=== PATIENT | female | born 1950 | race Caucasian/White ===

== ENCOUNTER 2024-08-26 18:07 | Emergency (ER) | payer MEDICARE, SELFPAY ==
[2024-08-26 18:08] VITALS: BP 145/79; PULSE 88; RESP 20; TEMP 37.1; O2SAT 98
[2024-08-26] MEDS: LACTATED RINGERS 1,000 ML 999 ML IV CONT ×2 (18:28→20:11)
[2024-08-26 18:34] LABS: Basophils Absolute Auto 0.1 K/mm3 (0.0-0.1); Basophils Percent Auto 0.7 % (0.2-1.2); Eosinophils Absolute Auto 0.2 K/mm3 (0-0.3); Eosinophils Percent Auto 3.2 % (0-4.4); Hematocrit 37.7 % (37.0-47.0); Hemoglobin 12.5 g/dL (12.0-15.0); Immature Granulocyte Absolute 0.03 K/mm3 (0.00-0.031); Immature Granulocyte Percent A 0.4 % (0-0.5); Lymphocytes Percent Auto 27.6 % (18.3-44.2); Mean Corpuscular HGB Conc 33.2 g/dl (32-36); Mean Corpuscular Hemoglobin 30.1 pg (26-34); Mean Corpuscular Volume 90.8 fl (80-100); Mean Platelet Volume 10.9 fl (7.4-10.4); Monocytes Absolute Auto 0.5 K/mm3 (0.1-0.6); Monocytes Percent Auto 7.6 % (2.6-8.5); Neutrophils Absolute Auto 4.2 K/mm3 (1.3-6.7); Neutrophils Percent Auto 60.5 % (45.5-73.1); Platelet Count Result 191 k/mm3 (150-375); Red Blood Count 4.15 M/mm3 (4.2-5.4); Red Cell Distribution Width 12.6 % (11.5-14.5); White Blood Count 6.9 K/mm3 (4.5-10.0)
[2024-08-26 18:44] LABS: Alanine Aminotransferase 19 U/L (6-35); Albumin Level 4.5 g/dL (3.5-5.1); Alkaline Phosphatase 72 U/L (38-126); Anion Gap 17 mmol/L (4-12); Aspartate Amino Transferase 26 U/L (14-36); Bilirubin,Total 0.5 mg/dL (0.2-1.3); Blood Urea Nitrogen 14 mg/dL (7-17); Calcium 9.3 mg/dL (8.4-10.2); Carbon Dioxide 17 mmol/L (22-30); Chloride 102 mmol/L (98-107); Estimated CRCL calculation 48 ml/min; Estimated Glomerular Filt Rate > 60; Glucose 95 mg/dL (65-110); Potassium 3.8 mmol/L (3.4-5.0); Sodium 136 mmol/L (137-145)
[2024-08-26] MEDS: HALOPERIDOL LACTATE 5 MG/ML VIAL IV PUSH (18:49)
[2024-08-26 18:50] LABS: Ethanol 259 mg/dL (<10)
--- NOTE | 2024-08-26 18:57 | ED_ITS ---
HPI - Alcohol General Chief Complaint: Alcohol <Teresa Rosales MD - Last Filed: 08/26/24 19:24> Stated Complaint: AMS, ETOH <Teresa Rosales MD - Last Filed: 08/26/24 19:24> Time Seen by Provider: 08/26/24 18:13 <Teresa Rosales MD - Last Filed: 08/26/24 19:24> History of Present Illness HPI narrative: Patient [place] here from the nail [place] after she admits that she snuck 2 bottles of white wine and drank it. She is denying any somatic complaints other than she wants us to leave her alone <Teresa Rosales MD - Last Filed: 08/26/24 19:24> Related Data Allergies/Adverse Reactions: Allergies Allergy/AdvReac Type Severity Reaction Status Date / Time No Known Allergies Allergy Verified 08/26/24 18:47 <Teresa Rosales MD - Last Filed: 08/26/24 19:24> Review of Systems 2 Review of Systems: ROS unobtainable: Yes unobtainable due to mental status <Teresa Rosales MD - Last Filed: 08/26/24 19:24> Exam 2 Narrative: EXAMINATION OF ORGAN SYSTEMS/BODY AREAS: Constitutional: Vital signs per nursing GENERAL: Obviously intoxicated HEAD: Normal with no signs of head trauma. EYES: EOMI, conjunctiva normal ENT: Hearing grossly intact LUNGS: Nonlabored breathing. HEART: [Regular rate and rhythm] ABD: [Soft], [nontender to palpation] EXT: Moving all extremities SKIN: [No rashes or lesions.] NEURO: [Alert with slurred speech. 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 Patient is alcohol intoxicated with a blood alcohol of 259. Patient was given hydration turn IV and her other laboratory studies are unremarkable. Patient is awake and alert. Attempting to arrange a sober ride for her to get home otherwise she will be in the ER until clinical sobriety and discharge. Patient is up and ambulating here in the emergency department and calm and cooperative. Normal vital signs. She was hydrated here and her family members are ready to take her home and felt comfortable with her discharge. Patient was discharged home at this time. <Karel Ragland MD - Last Filed: 08/27/24 06:33> Vital Signs Vital signs: Vital Signs Temperature 37.1 C 08/26/24 18:08 Pulse Rate 88 08/26/24 18:08 Respiratory Rate 20 08/26/24 18:08 Blood Pressure 145/79 H 08/26/24 18:08 Pulse Oximetry 98 08/26/24 18:08 Oxygen Delivery Room Air 08/26/24 18:08 Temperature 37.1 C 08/26/24 18:08 Pulse Rate 72 08/26/24 22:15 Respiratory Rate 19 08/26/24 22:15 Blood Pressure 118/74 08/26/24 22:15 Pulse Oximetry 96 08/26/24 22:15 Oxygen Delivery Room Air 08/26/24 18:08 <Teresa Rosales MD - Last Filed: 08/26/24 19:24> Vital Signs Temperature 37.1 C 08/26/24 18:08 Pulse Rate 88 08/26/24 18:08 Respiratory Rate 20 08/26/24 18:08 Blood Pressure 145/79 H 08/26/24 18:08 Pulse Oximetry 98 08/26/24 18:08 Oxygen Delivery Room Air 08/26/24 18:08 Temperature 37.1 C 08/26/24 18:08 Pulse Rate 72 08/26/24 22:15 Respiratory Rate 19 08/26/24 22:15 Blood Pressure 118/74 08/26/24 22:15 Pulse Oximetry 96 08/26/24 22:15 Oxygen Delivery Room Air 08/26/24 18:08 <Karel Ragland MD - Last Filed: 08/27/24 06:33> MDM - Alcohol MDM Narrative Medical decision making narrative: [facility] drinking 2 bottles of white wine disguised as water. No focal lateralizing neurological deficits although limited exam due to intoxication, will re-evaluate after sobriety. No complaints at this time, admits to alcohol use, and has a physical exam consistent with alcohol intoxication. CBG acceptable range. Given fluids and Haldol since she started screaming at staff, climbing out of bed, masturbating. Signed out to oncoming physician pending sobriety. <Teresa Rosales MD - Last Filed: 08/26/24 19:24> Lab Data Result diagrams: 08/26/24 18:24 08/26/24 18:24 <Teresa Rosales MD - Last Filed: 08/26/24 19:24> Labs: Lab Results 08/26/24 Range/Units 18:24 WBC 6.9 (4.5-10.0) K/mm3 RBC 4.15 L (4.2-5.4) M/mm3 Hgb 12.5 (12.0-15.0) g/dL Hct 37.7 (37.0-47.0) % MCV 90.8 (80-100) fl MCH 30.1 (26-34) pg MCHC 33.2 (32-36) g/dl RDW 12.6 (11.5-14.5) % Plt Count 191 (150-375) k/mm3 MPV 10.9 H (7.4-10.4) fl Immature Gran % (Auto) 0.4 (0-0.5) % Neut % (Auto) 60.5 (45.5-73.1) % Lymph % (Auto) 27.6 (18.3-44.2) % Cotton % (Auto) 7.6 (2.6-8.5) % Eos % (Auto) 3.2 (0-4.4) % Baso % (Auto) 0.7 (0.2-1.2) % Lymph # (Auto) 1.90 (0.9-3.2) K/mm3 Cotton # (Auto) 0.5 (0.1-0.6) K/mm3 Eos # (Auto) 0.2 (0-0.3) K/mm3 Baso # (Auto) 0.1 (0.0-0.1) K/mm3 Abs Immat Gran (auto) 0.03 (0.00-0.031) K/mm3 Absolute Neuts (auto) 4.2 (1.3-6.7) K/mm3 Absolute Nucleated RBC 0.000 (0.0-0.012) K/mm3 Nucleated RBC % 0.0 (0.0-0.2) % Sodium 136 L (137-145) mmol/L Potassium 3.8 (3.4-5.0) mmol/L Chloride 102 (98-107) mmol/L Carbon Dioxide 17 L (22-30) mmol/L Anion Gap 17 H (4-12) mmol/L BUN 14 (7-17) mg/dL Creatinine 0.83 (0.7-1.0) mg/dL Estim Creat Clear Calc 48 ml/min Estimated GFR > 60 (59 - ) Glucose 95 (65-110) mg/dL Calcium 9.3 (8.4-10.2) mg/dL Total Bilirubin 0.5 (0.2-1.3) mg/dL AST 26 (14-36) U/L ALT 19 (6-35) U/L Alkaline Phosphatase 72 (38-126) U/L Total Protein 7.0 (6.3-8.2) g/dL Albumin 4.5 (3.5-5.1) g/dL Ethyl Alcohol 259 (<10) mg/dL <Teresa Rosales MD - Last Filed: 08/26/24 19:24> Lab Results 08/26/24 Range/Units 18:24 WBC 6.9 (4.5-10.0) K/mm3 RBC 4.15 L (4.2-5.4) M/mm3 Hgb 12.5 (12.0-15.0) g/dL Hct 37.7 (37.0-47.0) % MCV 90.8 (80-100) fl MCH 30.1 (26-34) pg MCHC 33.2 (32-36) g/dl RDW 12.6 (11.5-14.5) % Plt Count 191 (150-375) k/mm3 MPV 10.9 H (7.4-10.4) fl Immature Gran % (Auto) 0.4 (0-0.5) % Neut % (Auto) 60.5 (45.5-73.1) % Lymph % (Auto) 27.6 (18.3-44.2) % Cotton % (Auto) 7.6 (2.6-8.5) % Eos % (Auto) 3.2 (0-4.4) % Baso % (Auto) 0.7 (0.2-1.2) % Lymph # (Auto) 1.90 (0.9-3.2) K/mm3 Cotton # (Auto) 0.5 (0.1-0.6) K/mm3 Eos # (Auto) 0.2 (0-0.3) K/mm3 Baso # (Auto) 0.1 (0.0-0.1) K/mm3 Abs Immat Gran (auto) 0.03 (0.00-0.031) K/mm3 Absolute Neuts (auto) 4.2 (1.3-6.7) K/mm3 Absolute Nucleated RBC 0.000 (0.0-0.012) K/mm3 Nucleated RBC % 0.0 (0.0-0.2) % Sodium 136 L (137-145) mmol/L Potassium 3.8 (3.4-5.0) mmol/L Chloride 102 (98-107) mmol/L Carbon Dioxide 17 L (22-30) mmol/L Anion Gap 17 H (4-12) mmol/L BUN 14 (7-17) mg/dL Creatinine 0.83 (0.7-1.0) mg/dL Estim Creat Clear Calc 48 ml/min Estimated GFR > 60 (59 - ) Glucose 95 (65-110) mg/dL Calcium 9.3 (8.4-10.2) mg/dL Total Bilirubin 0.5 (0.2-1.3) mg/dL AST 26 (14-36) U/L ALT 19 (6-35) U/L Alkaline Phosphatase 72 (38-126) U/L Total Protein 7.0 (6.3-8.2) g/dL Albumin 4.5 (3.5-5.1) g/dL Ethyl Alcohol 259 (<10) mg/dL <Karel Ragland MD - Last Filed: 08/27/24 06:33> Discharge Plan Discharge Clinical Impression: Alcoholic intoxication <Teresa Rosales MD - Last Filed: 08/26/24 19:24> Patient Disposition: Home <Teresa Rosales MD - Last Filed: 08/26/24 19:24> Condition: Stable <Teresa Rosales MD - Last Filed: 08/26/24 19:24> Instructions: Antibiotic Form, Abuse of Alcohol (ED) <Teresa Rosales MD - Last Filed: 05/15/25 19:24> Additional Instructions: Refrain from using significant amounts of alcohol. Return with any emergent concerns otherwise follow-up with your regular doctors. <Teresa Rosales MD - Last Filed: 08/26/24 19:24> Patient Language: Mongolian <Teresa Rosales MD - Last Filed: 08/26/24 19:24> Time of Disposition: 22:11 <Teresa Rosales MD - Last Filed: 08/26/24 19:24> 22:11 <Karel Ragland MD - Last Filed: 08/27/24 06:33>
[2024-08-26 19:15] VITALS: BP 114/84; BP 99/48; PULSE 73; PULSE 79; RESP 19; RESP 20; O2SAT 96; O2SAT 97
--- NOTE | 2024-08-26 19:17 | PC.NURSE ---
Assumed care of patient after receiving report from DALE Sanders. Patient received haldol prior to this RN arrival but no chemical restraint documentation noted.
[2024-08-26 20:03] VITALS: BP 94/62; PULSE 72; RESP 16; O2SAT 97
[2024-08-26 20:18] VITALS: BP 102/73; PULSE 79; RESP 16; O2SAT 99
[2024-08-26 21:18] VITALS: BP 112/71; PULSE 69; RESP 17; O2SAT 96
--- OUTSIDE RECORDS SUMMARY | 2024-08-26 21:48 | XMS_ITS | Clinical Summary ---
Author Organization [facility] Address [address] [place] [address] Care Team Providers Care Er Registrar Name Role Phone Shola Alvarez MD Unavailable [phone] Camilo Crowley DO Unavailable [phone] Jonna Mathew DO Primary Care Provide r Allergies Active Allergy Reactions Criticality Noted Date Comments Bee Venom Itching 07/23/2021 Uses epipen when has bee sting Insect Stings Hives High 12/13/2020 Medications EPINEPHrine 0.3 MG/0.3ML injection Inject 0.3 mLs (0.3 mg total) into the muscle as needed for Anaphylaxis. 1 Active omeprazole 40 MG capsule Take 1 capsule (40 mg total) by mouth daily. 1 Active famotidine 40 MG tablet Take 1 tablet (40 mg total) by mouth daily with lunch. Active sertraline 100 MG tablet Take 2 tablets (200 mg total) by mouth daily. Active atorvastatin 40 MG tablet Take 1 tablet (40 mg total) by mouth daily. 2 Active SUMAtriptan 100 MG tablet Take 0.5 tablets (50 mg total) by mouth 2 (two) times daily as needed. 2 Active tiZANidine 4 MG tablet Take 1 tablet (4 mg total) by mouth every 6 (six) hours as needed. Takes it routinely 4 times every day 1 Active acetaminophen 325 MG tablet Take 2 tablets (650 mg total) by mouth every 6 (six) hours as needed. Prn pain in arm from fracture of left arm 2 Active vitamin C 500 MG tablet Take 1 tablet (500 mg total) by mouth daily. Active calcium-vitamin D 600-200 MG-UNIT tablet Take 1 tablet by mouth 2 (two) times daily. Active traZODone 50 MG tablet Take 2 tablets (100 mg total) by mouth nightly as needed. at bedtime. 2 Active alendronate (FOSAMAX) 70 MG tablet Take 1 tablet (70 mg total) by mouth once a week. Friday 2 Active methIMAzole (TAPAZOLE) 5 MG tablet Take 1 tablet (5 mg total) by mouth daily. 3 Active busPIRone (BUSPAR) 10 MG tablet Take 1 tablet (10 mg total) by mouth 2 (two) times daily. Active Melatonin 10 MG Cap Take 10 mg by mouth nightly. Active diphenhydrAMINE (BENADRYL) 25 MG capsule Take 1 capsule (25 mg total) by mouth nightly as needed for Sleep. Active traMADol (ULTRAM) 50 MG tabletIndicatio ns:Acute Pain < 3 Day Supply Take 1 tablet (50 mg total) by mouth every 6 (six) hours as needed for Pain. Indications: Acute Pain < 3 Day Supply 10 tablet 3 Active Additional Information Patient not taking.Reported on 01/21/2023 midodrine (PROAMATINE) 5 MG tablet Take 1 tablet (5 mg total) by mouth 3 (three) times daily for 30 days. 90 tablet 3 Active clonazePAM (KLONOPIN) 0.5 MG tablet 1 TABLET A DAY ONLY NEEDED FOR ANXIETY- DO NOT TAKE AT NIGHT OR EVERY DAY 3 Active mirtazapine (REMERON) 15 MG tablet Take 1 tablet (15 mg total) by mouth nightly at bedtime. Active Active Problems Problem Noted Date Diagnosed Date Multinodular goiter 10/23/2022 Essential (primary) hypertension 07/25/2021 Syncope, unspecified syncope type 07/25/2021 Chest pain in adult 03/21/2021 Chronic pain of right knee 03/30/2019 Lightheadedness Encounters Date Type Department Care Team Description 08/16/2024 3:45 PM CDT - 08/16/2024 11:59 PM CDT Hospital Encounter [facility] [place] [address] Jonna Mathew, DO Discharge Disposition: Home or Self Care (Routine Discharge) 08/16/2024 Travel from Last 3 Months Immunizations Immunization Administration Dates Next Due Fluad influenza vaccine, Sumeet drivalent (aIIV4), Inactivated, adjuvanted, preservative free, 0.5 mL,IM use 06/19/2017 Flucelvax 6 Months+ (Prefilled Syringe) 01/22/20 PFIZER COVID-19 (ORIGINAL FO RMULATION, PURPLE CAP) mRNA, LNP-S, PF, 30 MCG/0.3 ML DOSE 03/05/2021 Pneumococcal (Prevnar 13) 01/21/2019,06/19/2017 Shingrix 11/06/2020 Family History Medical History Relation Comments Hypertension Brother 1 Alcohol Abuse Father Hyperlipidemia Maternal Grandmother Breast Cancer Mother Cancer Mother breast cancer Hypertension Mother Breast Cancer Sister Cancer Sister Hypertension Sister Relation Status Comments Brother 1 Alive Brother 2 (Age 69) found , patient estranged Daughter Alive Father Other estranged from p atient Maternal Grandfather Maternal Grandmother Mother (Age 65) breast cancer Paternal Grandfather Paternal Grandmother Sister Alive Son (Age 17) in MVA Social History Tobacco Use Types Packs/Day Years Used Date Smoking Tobacco: Never Smokeless Tobacco: Never Alcohol Use Standard Drinks/Week Comments Not Currently 0 (1 standard drink = 0.6 oz pure alcohol) no alcohol within past few years AUDIT-C Answer Date Recorded Frequency of Alcohol Consumption Never 01/31/2019 Average Number of Drinks Not on file 019 Frequency of Binge Drinking Not on file 01/13 PHQ-2 Answer Date Recorded Patient Health Questionnaire-2 Score 0 10/23/2022 Comments No Sex and Gender Information Value Date Recorded Sex Assigned at Not on file Legal Sex Female 7:06 AM CDT Gender Identity Female 08/20/2021 6:47 AM CDT Sexual Orientation Straight 08/20/2021 6: 47 AM CDT Last Filed Vital Signs Vital Sign Reading Time Taken Comments Blood Pressure 100/56 01/21/2023 12:46 PM CDT Pulse 64 01/21/2023 12:46 PM CDT Temperature 36.6 C (97.9 F) 01/01/2023 10:58 AM CDT Respiratory Rate 16 01/01/2023 10:58 AM CDT Oxygen Saturation 100% 01/01/2023 10:58 AM CDT Inhaled Oxygen Concentration - - Weight 56.7 kg (125 lb) 01/21/2023 12:46 PM CDT Height 160 cm (5' 3 ) 01/21/2023 12:46 PM CDT Body Mass Index 22.14 01/21/2023 12:46 PM CDT Plan of Treatment Health Maintenance Due Date Last Done Comments Hepatitis C 12/28[birth year]1969 DTaP, Tdap and Td Vaccines ( 1 - Tdap) 12/28/1970 Annual Medicare Wellness Visit 12/28/2016 Pneumococcal Vaccine: 50+ Years (2 of 2 - PPSV23) 01/22/2020 01/21/2019, 06/19/2017 Zoster Vaccines (2 of 2) 01/01/2021 11/06/2020 COVID-19 Vaccine (4 - 2023-2 5 season) 2023 03/05/2021, 07/20/2020, 06/29/2020 PHQ-2 (Physician [place]) 04/14/2024 10/23/2022 Mammogram Screening 09/16/2024 09/16/2022 RSV Immunization or 60+ Years (1 - 1-dose 75+ series) 12/28/2026 Colorectal Cancer Screening Colonoscopy (10 Years) 12/13/2030 12/13/2020, 12/13/2020 Dexa Scan (General) Completed 11/05/2023, 11/02/2021 Meningococcal B Vaccine Aged Out No l onger eligible based on patient's age to complete this topic Meningococcal Vaccine Aged Out No [place] fco eligible based on patient's age to complete this topic RSV Immunizations Under 20 Months Aged Out No longer eligible b ased on patient's age to complete this topic Procedures Procedure Name Priority Date/Time Associated Diagnosis Comments XR KNEE RT 3V Routine 08/16/2024 4:21 PM CDT Pain in right knee XR KNEE LT 3V Routine 08/16/2024 4:21 PM CDT Pain in left knee BONE DENSITY/DEXA Routine 11/05/2023 2:3 1 PM CDT Asymptomatic menopausal state MG DIAG IMPLANT W MURPHY RT DIGI Routine 09/16/2022 4:23 PM CDT Personal history of malignant neoplasm of breast COLONOSCOPY Routine 12/13/2020 8:54 AM CDT from Last 3 Months or Most Recently Relevant to Health Maintenance Results * XR KNEE RT 3V (08/16/2024 4:21 PM CDT) Anatomical Region Laterality Modality Knee Radiographic [place] ging 08/17/2024 4:15 AM CDT Impressions 08/17/2024 4:16 AM CDT IMPRESSION: 1. Mild early osteoarthritic changes in both knees with no acute osseous abnormalities Referred By: Interpreted By: Dex Smith MD, 08/17/2024 4:15 AM Narrative 08/17/2024 4:16 AM CDT [address] [address] Examination: Right knee 3 views, left knee 3 views [id number] Exam Date/Time: 08/16/2024 4:06 PM Reason For Exam: knee pain Bilateral pain in the knees for multiple years recently worsening. No known injury. Comparison: 12/18/2018 right knee radiographs Technique: 3 views of the right knee were obtained. 3 views of the left knee were obtained. Findings: Minimal joint space narrowing in the medial compartments bilaterally. Tiny superior patellar spur bilaterally. No significant joint effusion on either side. No fracture or dislocation in either knee. No destructive osseous lesions. No radiopaque foreign bodies. Procedure Note Dex Smith MD - 08/17/2024 [facility] [address] [place], [place] [address] Examination: Right knee 3 views, left knee 3 views [id number] Exam Date/Time: 08/16/2024 4:06 PM Reason For Exam: knee pain Bilateral pain in the knees for multiple years recently worsening. [place] injury. Comparison: 12/18/2018 right knee radiographs Technique: 3 views of the right knee were obtained. 3 views of the leftknee were obtained. Findings: Minimal joint space narrowing in the medial compartmentsbilaterally. Tiny superior patellar spur bilaterally. No significantjoint effusion on either side. No fracture or dislocation in either knee.No destructive osseous lesions. No radiopaque foreign bodies. IMPRESSION: 1. Mild early osteoarthritic changes in both knees with no acute osseousabnormalities Referred By: Interpreted By: Dex Smith MD, 08/17/2024 4:15 AM Jonna Mathew DO GENERAL IMAGING Final Result * XR KNEE LT 3V (08/16/2024 4:21 PM CDT) Anatomical Region Laterality Modality Knee Radiographic [place] ging 08/17/2024 4:15 AM CDT Impressions 08/17/2024 4:16 AM CDT IMPRESSION: 1. Mild early osteoarthritic changes in both knees with no acute osseous abnormalities Referred By: Interpreted By: Dex Smith MD, 08/17/2024 4:15 AM Narrative 08/17/2024 4:16 AM CDT [address] [address] Examination: Right knee 3 views, left knee 3 views [id number] Exam Date/Time: 08/16/2024 4:06 PM Reason For Exam: knee pain Bilateral pain in the knees for multiple years recently worsening. No known injury. Comparison: 12/18/2018 right knee radiographs Technique: 3 views of the right knee were obtained. 3 views of the left knee were obtained. Findings: Minimal joint space narrowing in the medial compartments bilaterally. Tiny superior patellar spur bilaterally. No significant joint effusion on either side. No fracture or dislocation in either knee. No destructive osseous lesions. No radiopaque foreign bodies. Procedure Note Dex Smith MD - 08/17/[address] [address] Examination: Right knee 3 views, left knee 3 views [id number] Exam Date/Time: 08/16/2024 4:06 PM Reason For Exam: knee pain Bilateral pain in the knees for multiple years recently worsening. [place] injury. Comparison: 12/18/2018 right knee radiographs Technique: 3 views of the right knee were obtained. 3 views of the leftknee were obtained. Findings: Minimal joint space narrowing in the medial compartmentsbilaterally. Tiny superior patellar spur bilaterally. No significantjoint effusion on either side. No fracture or dislocation in either knee.No destructive osseous lesions. No radiopaque foreign bodies. IMPRESSION: 1. Mild early osteoarthritic changes in both knees with no acute osseousabnormalities Referred By: Interpreted By: Dex Smith MD, 08/17/2024 4:15 AM Jonna Mathew DO GENERAL IMAGING Final Result * BONE DENSITY/DEXA (11/05/2023 2:31 PM CDT) Anatomical Region Laterality Modality Bone Mammography 11/05/2023 2:35 PM CDT Impressions 11/05/2023 2:36 PM CDT IMPRESSION: WHO Classification: osteoporosis. 3.6% interval decrease in bone mineral density of the lumbar spine from 2021 comparison FRAX: 5.5% chance of hip fracture and 16% chance of major osteoporotic fracture over the next 10 years. Referred By: REGIS HITCHCOCK Interpreted By: Dex Smith MD, 11/05/2023 2:35 PM Narrative 11/05/2023 2:36 PM CDT Examination: Bone Density Axial Exam Date/Time: 11/05/2023 2:10 PM Reason For Exam: Asymptomatic menopausal state Comparison: 11/02/2021 DEXA scan Findings: DEXA bone densitometry The bone mineral density (BMD) was determined by dual-energy x-ray absorptiometry, the results are as follows: AP Lumbar Spine L1 through L4 BMD Patient (GM/SQCM): 0.846 T-Score (Standard deviations from young adult peak bone density): -1.8 Right femoral neck: BMD Patient (GM/SQCM): 0.526 T-Score (Standard deviations from young adult peak bone density): -2.9 Total Left femur: BMD Patient (GM/SQCM): 0.672 T-Score (Standard deviations from young adult peak bone density): -2.2 Recommendations: All patients should ensure an adequate intake of dietary calcium and vitamin D. The NOF recommend adults under the age of 50 need 1000 mg of calcium and 400-800 IU of vitamin D daily. Effective therapy for the prevention and treatment of osteoporosis include biphosphonates. Follow-up: People with diagnosed cases of osteoporosis or at high risk for fracture should have regular bone mineral density test. For patients eligible for Medicare, routine testing is allowed once every 2 years. Testing frequency can be increased to one year for patients who have rapidly progressing disease, those who are receiving or discontinuing medical therapy to restore bone mass, or have additional risk factors. Procedure Note Dex Smith MD - 11/05/2023 Examination: Bone Density Axial Exam Date/Time: 11/05/2023 2:10 PM Reason For Exam: Asymptomatic menopausal state Comparison: 11/02/2021 DEXA scan Findings: DEXA bone densitometry The bone mineral density (BMD) was determined bydual-energy x-ray absorptiometry, the results are as follows: AP Lumbar Spine L1 through L4 BMD Patient (GM/SQCM): 0.846 T-Score (Standard deviations from young adult peak bonedensity): -1.8 Right femoral neck: BMD Patient (GM/SQCM): 0.526 T-Score (Standard deviations from young adult peak bonedensity): -2.9 Total Left femur: BMD Patient (GM/SQCM): 0.672 T-Score (Standard deviations from young adult peak bonedensity): -2.2 Recommendations: All patients should ensure an adequate intake of dietary calcium andvitamin D. The NOF recommend adults under the age of 50 need 1000 mg ofcalcium and 400-800 IU of vitamin D daily. Effective therapy for theprevention and treatment of osteoporosis include biphosphonates. Follow-up: People with diagnosed cases of osteoporosis or at high risk for fractureshould have regular bone mineral density test. [facility], routine testing is allowed once every 2 years. Testing frequencycan be increased to one year for patients who have rapidly progressingdisease, those who are receiving or discontinuing medical therapy torestore bone mass, or have additional risk factors. IMPRESSION: WHO Classification: osteoporosis. 3.6% interval decrease in bone mineraldensity of the lumbar spine from 2021 comparison FRAX: 5.5% chance of hip fracture and 16% chance of major osteoporoticfracture over the next 10 years. Referred By: REGIS HITCHCOCK Interpreted By: Dex Smith MD, 11/05/2023 2:35 PM us Regis Hitchcock MD DEXA Final Result * MG DIAG IMPLANT W MURPHY RT DIGI (09/16/2022 4:23 PM CDT) Anatomical Region Laterality Modality Breast Right Mammography 09/16/2022 4:36 PM CDT Narrative 09/16/2022 4:49 PM CDT EXAMINATION: Digital right diagnostic mammogram with 3-D tomosynthesis; right breast ultrasound [id number] EXAM DATE/TIME: 09/16/2022 4:16 PM REASON FOR EXAM: Palpable lump of the right lower axillary region for one month. History of breast cancer and prior bilateral mastectomy with implant reconstruction. COMPARISON: None. TECHNIQUE: Digital diagnostic mammography of the right breast was performed in addition to 3-D Tomosynthesis technique. This study was read with the assistance of a computer-aided detection system. Right breast ultrasound was performed. TISSUE DENSITY: The breast tissue is almost entirely fatty. FINDINGS: Mammogram findings: Prior total mastectomy with reconstruction implant in place. Scattered capsular calcifications are noted. Implant is otherwise unremarkable. No suspicious calcifications. Surgical clip noted in the right axilla. Spot views are obtained in the palpable area of the far lateral aspect of the right breast/chest wall, lower axillary region. In this area, there is an ovoid circumscribed mass. This is nonspecific and corresponds well with the skin marker location. Further evaluation is performed with ultrasound. Ultrasound findings: Targeted ultrasound reveals a a circumscribed reniform mass of the right lateral chest wall, lower axillary region compatible with lymph node measuring 0.7 x 0.7 x 0.4 cm. Cortex is thin and uniform, and the fatty echogenic hilum is preserved. Further scanning in the right axilla reveals no additional axillary adenopathy further superior. =====IMPRESSION:===== The palpable lump corresponds to a borderline prominent lymph node of the right lateral chest wall/lower axilla. Lower suspicion based on size and ultrasound evaluation but remains indeterminate. Consider correlation with biopsy. If biopsy is deferred, short interval follow-up would be recommended in 3 months. ASSESSMENT: ACR BI-RADS 4A - LOW SUSPICION FOR MALIGNANCY (Between 3% to 10% Likelihood) Recommendation: 1: Biopsy should be considered Right Ordered By: SONY HERRERA Interpreted By: Doroteo Stafford MD, 09/16/2022 4:36 PM Sony Herrera MD MAMMO Final Result from Last 3 Months or Most Recently Relevant to Health Maintenance Insurance AETNA AETNA Care Teams Er Registrar Relationship Specialty Start Date End Date Jonna Mathew DO 3 [facility] [address] [place] [id number] PCP - General FAMILY PRACTICE 10/29/22 Shola Alvarez MD Three [facility]. [facility] [address] [place] [address] Consulting Physician CARDIOVASCULAR DISEASE 11/14/21 [place] [address] [place] [id number] ORTHOPAEDIC SURGERY 11/14/21
--- OUTSIDE RECORDS SUMMARY | 2024-08-26 21:48 | XMS_ITS | Clinical Summary ---
Author Organization [facility] Address [address] [place] [address] Care Team Providers Care Wastewater Analyst Lab Analyst Name Role Phone Unavailable Primary Care Provider Unavailabl e Source Comments [facility],non-owned Affiliates and Associated Physician Practices is amultiple site organization consisting of ambulatory clinics and hospital sitesin [place], [place], [place] and [place]. This disclosure is being madepursuant to the Care Everywhere program and may not contain all information available regarding this patient. Last updated 18.[facility] Allergies Active Allergy Reactions Criticality Noted Date Comments Bee Venom Itching 07/23/2021 Medications * Be aware that medications may not be up to date on this document. Alwaysverify current medications with the patient. traZODone (DESYREL) 100 MG tablet Take 100 mg by mouth at bedtime Active famotidine (PEPCID) 40 MG tablet Take 40 mg by mouth once daily Active omeprazole (PRILOSEC) 40 MG capsule Take 40 mg by mouth daily before breakfast Active sertraline (ZOLOFT) 100 MG tablet Take 100 mg by mouth 2 times daily Active SUMAtriptan (IMITREX) 50 MG tablet Take 50 mg by mouth daily as needed - may repeat one time for Migraine Maximum daily dose: 200mg/24 hours Active tiZANidine (ZANAFLEX) 4 MG tablet Take 6 mg by mouth every 6 hours as needed for Muscle Spasms Active calcium-vitami n D (CALTRATE PLUS D) 600-200 MG-UNIT tablet Take 1 tablet by mouth once daily Active ascorbic acid (VITAMIN C) 500 MG tablet Take 500 mg by mouth once daily Active melatonin 3 MG tablet Take 10 mg by mouth at bedtime Up to 30 mg Active EPINEPHrine (EPI PEN JR) 0.15 MG/0.3ML auto-injector pen Inject 0.15 mg into muscle as needed for Anaphylaxis Active acetaminophen (TYLENOL) 325 MG tabletIndicati ons:Other closed displaced fracture of distal end of left humerus with delayed healing, subsequent encounter Take 2 (two) tablets by mouth every 4 hours Maximum allowable Acetaminophen amount = 4 Grams (4000 mg) / 24 hours. 2 Active midodrine (Proamatine) 5 MG tablet Take 5 mg by mouth 3 times daily before meals Active polyethylene glycol 3350 (Miralax) 17 g packet Take 17 (seventeen) g by mouth once daily as needed for Constipation 2 Active Active Problems Problem Noted Date Diagnosed Date Impaired mobility and ADLs 01/04/2022 Post-operative pain 01/04/2022 Other closed displaced fract ure of distal end of left humerus with routine healing, subsequent encounter 01/02/2022 Other closed displaced fract ure of distal end of left humerus with delayed healing, subsequent encounter 07/23/2021 Closed fracture of distal en d of left humerus with routine healing Retained orthopedic hardware Immunizations Immunization Administration Dates Next Due [employer] primary monoval ent 12+ yr 0.3mL Purple cap 03/05/2021,07/20/2020,06/29/2020 Social History Tobacco Use Types Packs/Day Years Used Date Smoking Tobacco: Never Smokeless Tobacco: Never Tobacco Cessation:Counseling Given: Not Answered Alcohol Use Standard Drinks/Week Comments Not Currently 0 (1 standard drink = 0.6 oz pur e alcohol) AUDIT-C Answer Date Recorded Q1: How often do you have a drink containing alcohol? Never 01/02/2022 Q2: How many drinks containi ng alcohol do you have on a typical day when you are drinking? Patient does not drink Q3: How often do you have si x or more drinks on one occasion? Never 01/02/2022 Hunger Vital Sign Answer Date Recorded Within the past 12 months, y ou worried that your food would run out before you got the money to buy more. Never true 07/25/19 22 Within the past 12 months, t he food you bought just didn't last and you didn't have money to get more. 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 Height 160 cm (5' 3 ) 01/02/2022 7:46 AM CDT Body Mass Index 21.79 01/02/2022 7:46 AM CDT Plan of Treatment Health Maintenance Due Date Last Done Comments BONE DENSITY TESTING 1950 COLOGUARD (AGES 45-75) - COLON CA SCREENING 1950 CT COLONOGRAPHY - COLON CA SCREENING 1950 FIT - COLON CA SCREENING 1950 FLEX SIG - COLON CA SCREENING 1950 LIPID TESTING 1950 MAMMOGRAM 1950 HEPATITIS C SCREENING 12/24/1969 DTAP/TDAP/TD VACCINES (1 - Tdap) 12/28/1970 PNEUMOCOCCAL VACCINE 50+ (1 of 1 - PCV) 12/28/2001 ZOSTER VACCINE (1 of 2) 12/28/2001 Respiratory Syncytial Virus (RSV) Vaccine Pt: or over 60 yrs (1 - Risk 60-74 years 1-dose series) 2011 COLON MONITORING 11/05/2022 11/05/2017, , 10/12/2015, Additional history exists Colorectal Cancer Screening 11/05/2022 COVID-19 VACCINE ( season) 2023 03/05/2021, 07/20/2020, 06/29/2020 DEPRESSION SCREENING 04/14/2024 INFLUENZA VACCINE (Season Ended) 2024 01/21/2019, 02/19/2016, 03/27/1999 COLONOSCOPY - COLON CA SCREENING 11/06/2027 11/05/2017, 11/05/2017, 10/12/2015, Additional history exists HEPATITIS B VACCINE Aged Out No longe r eligible based on patient's age to complete this topic HIB VACCINE Aged Out No longer eligi ble based on patient's age to complete this topic HPV VACCINE Aged Out No longer eligi ble based on patient's age to complete this topic MENINGOCOCCAL (Group B) VACCINE SHARED DECISION-MAKING Aged Out No longer eligible based on patient's age to complete this topic MENINGOCOCCAL GROUPS A/C/Y/W VACCINE Aged Out No longer eligible based on patient's age to complete this topic Medical Devices Implanted Type Area Mill Operator Device Identifier Shelf Expiration Date Model / Serial / Lot Plate 9 Hl Lopro Prox Blt Tip Hum Lt Implanted:Qty: 1 on 07/23/2021 by Camilo Crowley DO at [facility] Left: Humerus [employer] 1312-18-702 / / [employer] 3.5mm Multi-Directio nal Screw - 50mm Implanted:Qty: 1 on 07/23/2021 by Camilo Crowley DO at [facility] Left: Humerus [id number] / / Screw 3.5mm 32mm T15 Lck Lopro Slf-Tap Implanted:Qty: 1 on 07/23/2021 by Camilo Crowley DO at [facility] Left: Humerus [employer] 1312-18-032 / / Screw 3.5mm 24mm Ft Nonlock Hex Drv Elb Implanted:Qty: 1 on 07/23/2021 by Camilo Crowley DO at [facility] Left: Humerus [employer] 8150-37-024 / / [employer] 3.5mm Multi-Directio nal Screw - 24mm Implanted:Qty: 1 on 07/23/2021 by Camilo Crowley DO at [facility] Left: Humerus [id number] / / Plate 9 Hl Lopro Prox Blt Tip Implanted:Qty: 1 on 07/23/2021 by Camilo Crowley DO at [facility] Left: Humerus [employer] 1312-18-302 / / Screw 3.5mm 22mm T15 Slf-Tap Tip Lck Implanted:Qty: 1 on 07/23/2021 by Camilo Crowley, at [facility] Left: Humerus [employer] 1312-18-022 / / Screw 3.5mm 24mm T15 Slf-Tap Lck Lopro Implanted:Qty: 1 on 07/23/2021 by Camilo Crowley, DO at [facility] Left: Humerus [employer] 1312-18-024 / / Screw 3.5mm 20mm T15 Slf-Tap Tip Lck Implanted:Qty: 2 on 07/23/2021 by Camilo Crowley, at [facility] Left: Humerus [employer] [id number] / / [employer] 3.5mm Multi-Directio nal Screw - 48mm Implanted:Qty: 1 on 07/23/2021 by Camilo Crowley, DO at [facility] Left: Humerus [id number] / / [employer] 3.5mm Multi-Directio nal Screw - 20mm Implanted:Qty: 1 on 07/23/2021 by Camilo Crowley DO at [facility] Left: Humerus [id number] / / Screw 3.5mm 26mm 2.5mm Nonlock Hex Drv Implanted:Qty: 1 on 01/02/2022 by Camilo Crowley DO at [facility] Left: Arm [employer] [id number] / / Screw 3.5mm 36mm Ft Slf-Tap Hex Lopro Implanted:Qty: 1 on 01/02/2022 by Camilo Crowley DO at [facility] Left: Arm [employer] [id number] / / Screw 3.5mm 20mm 2.2mm Mldir Lck Sq Implanted:Qty: 2 on 01/02/2022 by Camilo Crowley DO at [facility] Left: Arm [employer] [id number] / / Screw 3.5mm 36mm 2.2mm Mldir Lck Sq Drv Implanted:Qty: 1 on 01/02/2022 by Camilo Crowley DO at [facility] Left: Arm [employer] [id number] / / Screw 3.5mm 24mm T15 Slf-Tap Lck Lopro Implanted:Qty: 1 on 01/02/2022 by Camilo Crowley DO at [facility] Left: Arm [employer] [id number] / / Graft Bone Ntr Ac Cnxs Dbm 1ml Ptty Syr - [id number] Implanted:Qty: 1 on 01/02/2022 by Camilo Crowley DO at [facility] Left: Arm [employer] 10/09/2022 02-3000-010 / [id number] / [id number] Explanted Type Area Mill Operator Device Identifier Shelf Expiration Date Model / Serial / Lot [employer] 3.5mm Multi-Directio nal Screw - 46mm Explanted:Qty: 1 on 07/23/2021 by Camilo Crowley DO at [facility] Left: Humerus [id number] / / Pin Fx 6in 2mm Hlf Bynt Explanted:Qty: 1 on 07/23/2021 at [facility] Left: Humerus [employer] [id number] / / Screw 3.5mm 32mm T15 Lck Lopro Slf-Tap Explanted:Qty: 1 on 07/23/2021 by Camilo Crowley DO at [facility] Left: Humerus [employer] 1312-18-032 / / Screw 3.5mm 24mm T15 Slf-Tap Lck Lopro Explanted:Qty: 1 on 07/23/2021 by Camilo Crowley DO at [facility] Left: Humerus [employer] 1312-18-024 / / Procedures Procedure Name Priority Date/Time Associated Diagnosis Comments ENDOSCOPY, COLON, DIAGNOSTIC Routine 11/05/2017 1:44 PM CDT from Last 3 Months or Most Recently Relevant to Health Maintenance Results * ENDOSCOPY, COLON, DIAGNOSTIC (11/05/2017 1:44 PM CDT) Report Endoscopy POC _ Patient Name: Reji Fry Procedure Date: 11/05/2017 1:44 PM Date of : 1950 Admit Type: Outpatient Age: 66 Gender: Female Attending MD: Giancarlo Davis MD _ Procedure: Colonoscopy Indications: Screening for colorectal malignant neoplasm, hx breast cancer high risk Providers: Giancarlo Davis MD (Doctor), Krys Lucas RN, Elian Alvarado, Screen Printing Machine Operator Referring MD: Taqueria Watts (Referring MD) Medicines: Monitored Anesthesia Care Complications: No immediate complications. _ Procedure: Pre-Anesthesia Assessment: - ASA Grade Assessment: II - A patient with mild systemic disease. - Airway Examination: Mallampati Class I (tonsillar pillars visualized). After I obtained informed consent, the scope was passed under direct vision. Throughout the procedure, the patient's blood pressure, pulse, and oxygen saturations were monitored continuously. The Colonoscope was introduced through the anus and advanced to the cecum, identified by appendiceal orifice and ileocecal valve. The colonoscopy was performed without difficulty. Impression: - Diverticulosis. - No specimens collected. Findings: A few small-mouthed diverticula were found in the colon. _ Recommendation: - Repeat colonoscopy in 5 years for surveillance. Procedure Code(s): --- Professional --- 55360, Colonoscopy, flexible; diagnostic, including collection of specimen(s) by brushing or washing, when performed (separate procedure) --- Technical --- 86265, Colonoscopy, flexible; diagnostic, including collection of specimen(s) by brushing or washing, when performed (separate procedure) Diagnosis Code(s): --- Professional --- Z12.11, Encounter for screening for malignant neoplasm of colon K57.30, Diverticulosis of large intestine without perforation or abscess without bleeding --- Technical --- Z12.11, Encounter for screening for malignant neoplasm of colon K57.30, Diverticulosis of large intestine without perforation or abscess without bleeding CPT copyright 2015 [employer]. All rights reserved. The codes documented in this report are preliminary and upon supervisor nuclear medicine review may be revised to meet current compliance requirements. Giancarlo Davis MD 11/05/2017 2:14:37 PM This report has been signed electronically. Number of Addenda: 0 Note Initiated On: 11/05/2017 1:44 PM [facility] ENDOSCOPY 11/05/2017 1:44 PM CDT us Giancarlo Davis MD GI PROCEDURE ORDERABLES Edited R esult - Final [facility] ENDOSCOPY from Last 3 Months or Most Recently Relevant to Health Maintenance Insurance AETNA AETNA AETNA Advance Directives * Full Code (Latest Code Status on File) Date Activated Date Inactivated Comments 01/02/2022 1:31 PM 01/04/2022 2:17 PM * Full Code Date Activated Date Inactivated Comments 07/23/2021 12:36 PM 07/25/2021 5:12 PM
--- OUTSIDE RECORDS SUMMARY | 2024-08-26 21:48 | XMS_ITS | Encounter Summary ---
Author Organization [facility] Address [facility] [place] [address] Care Team Providers Care Suture Winder Hand Name Role Phone Kenn Bradley MD Primary Care Provider Shola Duran MD Unavailable [phone] Camilo Crowley DO Unavailable [phone] Jonna Mathew DO Primary Care Provide r Bridger Schultz MD Unavailable Encounter Details Date Type Department Care Team (Late st Contact Info) Description 07/12/2021 [facility] Documentation [facility] Emergency Room [place], [place] [id number] Sarah Garrett, PASSENGER SERVICE MANAGER [address], [place] [address] Social History Tobacco Use Types Packs/Day Years Used Date Smoking Tobacco: Never Smokeless Tobacco: Never Alcohol Use Standard Drinks/Week Comments Yes 0 (1 standard drink = 0.6 oz pur e alcohol) very rarely AUDIT-C Answer Date Recorded Frequency of Alcohol Consumption Never 01/31/2019 Average Number of Drinks Not on file 019 Frequency of Binge Drinking Not on file 01/13 Comments No Sex and Gender Information Value Date Recorded Sex Assigned at Not on file Legal Sex Female 7:06 AM CDT Gender Identity Female 08/20/2021 6:47 AM CDT Sexual Orientation Straight 08/20/2021 6: 47 AM CDT COVID-19 Exposure Response Date Recorded In the last 10 days, have yo u been in contact with someone who was confirmed or suspected to have Coronavirus/COVID-19? No / Unsure 07/09/2021 12:29 PM CDT documented as of this encounter Plan of Treatment Not on file documented as of this encounter Visit Diagnoses Diagnosis Left arm pain Pain in limb documented in this encounter Care Teams Suture Winder Hand Relationship Specialty Start Date End Date Kenn Bradley MD PCP - General FAMILY PRACTICE 03/09/21 10/28/22 Jonna Mathew DO [address] [facility] [address] [place] [phone] PCP - General FAMILY PRACTICE 10/29/22 Shola Alvarez MD [facility]. [address] [place], [place] [id number] Consulting Physician CARDIOVASCULAR DISEASE 11/14/21 Camilo Crowley DO [address] [place] [id number] ORTHOPAEDIC SURGERY 11/14/21 Bridger Schultz MD [address] [facility] [address] [place] [phone] Consulting Physician ENDOCRINOLOGY 10/29/22 07/07/23 documented as of this encounter
--- OUTSIDE RECORDS SUMMARY | 2024-08-26 21:48 | XMS_ITS | Encounter Summary ---
Author Organization [facility] Address [address] [place] [place] [address] Care Team Providers Care Sr. Manager Marketing Name Role Phone Unavailable Primary Care Provider Yesenia e Encounter Details Date Type Department Care Team (Late st Contact Info) Description 10/20/2019 Lab Requisition [facility] [address] [place] [address] Courtney Howadr MD [address] [place] [address] Social History Tobacco Use Types Packs/Day Years Used Date Smoking Tobacco: Never Smokeless Tobacco: Never Alcohol Use Standard Drinks/Week Comments No 0 (1 standard drink = 0.6 oz pur e alcohol) Comments Unknown Sex and Gender Information Value Date Recorded Sex Assigned at Not on file Legal Sex Female 6:16 PM CDT Gender Identity Not on file Sexual Orientation Not on file documented as of this encounter Plan of Treatment Not on file documented as of this encounter Procedures Procedure Name Priority Date/Time Associated Diagnosis Comments DERMATOPATHOLOGY Routine 10/19/2019 12:0 0 AM CDT documented in this encounter Results * DERMATOPATHOLOGY (10/19/2019 12:00 AM CDT) Case Report Dermatopathology Report Case: [id number] Authorizing Provider: Courtney Howard MD Collected: 10/19/2019 12:00 AM Ordering Location: [facility] Received: 10/20/2019 10:15 AM Pathologist: Nona Box MD Specimen: Skin, right lower leg 0 1:28 PM T DERMATOPATHOLOGY LABORATORY Final Diagnosis Specimen A. SKIN, right lower leg: SEBORRHEIC KERATOSIS, IRRITATED (L82.0) NOT PRESENT AT MARGIN 0 1:28 PM CDT DERMATOPATHOLOGY LABORATORY Clinical History Possible SCC. Check margins 0 1:28 PM CDT DERMATOPATHOLOGY LABORATORY Gross Description Specimen A: Received is one formalin filled container labeled with the patient's name and designated right lower leg.The specimen consists of an ellipse measuring 30d31u3 mm and is oriented with the suture/notch at the 12 o'clock position labeled on the requisition as marked at 12 o'clock. The 12 to 6 o'clock margin is inked green. The 6 o'clock to 12 o'clock margin is inked black. The 12 o'clock tip is submitted in cassette 1. The 6 o'clock tip is submitted in cassette 2. The remainder of the ellipse is serially sectioned and submitted in cassettes 3-4. Jar 0. 0 1:28 PM T DERMATOPATHOLOGY LABORATORY Microscopic Description Specimen A. SKIN, right lower leg: There is acanthosis consisting of fairly uniform squamous cells with eosinophilic cytoplasm and squamous eddies. This lesion is not present at the margin of the specimen. 0 1:28 PM CDT DERMATOPATHOLOGY LABORATORY Disclaimer An external and internal positive and negative controls are appropriate for the histochemical, immunohistochemical and immunofluorescence stain(s) in this case (if any), except where stated explicitly. The performance characteristics of the stain(s) cited in this report were developed and its performance characteristic determined by the Dermatopathology Laboratory at [facility], directed by Dr. Sachin Box. These tests need not be, and therefore are not, approved by the [place] Food and Drug Administration. The tests are used for clinical purposes. Billing Codes Specimen Charges Stain Charges 91719 1 0 1:28 PM CDT DERMATOPATHOLOGY LABORATORY Embedded Images 0 1:28 PM CDT DERMATOPATHOLOGY LABORATORY Pathology/Cytolog y TISSUE SPECIMEN FROM SKIN / Unknown 10/19/2019 10/20/2019 10:15 AM CDT Courtney Howard MD LAB - PATHOLOGY/CYTOLOGY OR DERABLES Final Result DERMATOPATHOLOGY LABORATORY [facility] - Department of Dermatology [facility]/[address] [phone] documented in this encounter Visit Diagnoses Not on filedocumented in this encounter
--- OUTSIDE RECORDS SUMMARY | 2024-08-26 21:48 | XMS_ITS | Clinical Summary ---
Author Organization [facility] Address [address] [place] [address] Care Team Providers Care Property And Casualty Insurance Agent Name Role Phone Jonna Mathew MD Primary Care Pro vider Santana Pal MD Unavailable [phone] Allergies Active Allergy Reactions Criticality Noted Date Comments Insect Venom Hives High 12/13/2020 Venom-Honey Bee Itching Low 07/23/2021 Uses epipen when has bee sting Medications atorvastatin (LIPITOR) 40 mg tablet TAKE ONE TABLET BY MOUTH EVERY DAY Active clonazePAM (KlonoPIN) 0.5 mg tablet 1 9 Active methocarbamol (ROBAXIN) 500 mg tablet 2 9 Active mirtazapine (REMERON) 7.5 mg tablet Take 1 tablet (7.5 mg total) by mouth nightly Active gabapentin enacarbil 300 mg tablet extended release Take by mouth Active sertraline (ZOLOFT) 100 mg tablet Take 1 tablet (100 mg total) by mouth daily Active omeprazole (PriLOSEC) 20 mg capsule Take 1 capsule (20 mg total) by mouth daily Active losartan (COZAAR) 50 mg tablet Take 1 tablet (50 mg total) by mouth daily Active alendronate (FOSAMAX) 70 mg tablet Take 1 tablet (70 mg total) by mouth every 7 days Take in the morning with a full glass of water, on an empty stomach, and do not take anything else by mouth or lie down for the next 30 min. Active SUMAtriptan (IMITREX) 100 mg tabletIndication s:Migraine Take 1 tablet (100 mg total) by mouth once as needed for migraine Active busPIRone (BUSPAR) 10 mg tabletIndication s:Generalized Anxiety Disorder Take 1 tablet (10 mg total) by mouth 3 (three) times a day Active midodrine (PROAMATINE) 5 mg tabletIndication s:Symptomatic Orthostatic Hypotension Take 1 tablet (5 mg total) by mouth 3 (three) times a day Active famotidine (PEPCID) 40 mg tablet Take 1 tablet (40 mg total) by mouth daily Active methIMAzole (TAPAZOLE) 5 mg tablet Take 1 tablet (5 mg total) by mouth 3 (three) times a day Active tiZANidine (ZANAFLEX) 4 mg tablet Take 1 tablet (4 mg total) by mouth every 6 (six) hours as needed for muscle spasms Active acetaminophen (TYLENOL) 325 mg tablet Take 2 tablets (650 mg total) by mouth every 6 (six) hours as needed 2 Active CALCIUM CARBONATE-VITAMI N D3 ORAL Take 1 tablet by mouth 2 (two) times a day Active EPINEPHrine (EPIPEN) 0.15 mg/0.3 mL injection syringe Inject 0.3 mL (0.15 mg total) into the muscle as instructed as needed Active melatonin 10 mg capsule Take 10 mg by mouth nightly Active polyethylene glycol (MIRALAX) 17 gram packet Take 1 packet (17 g total) by mouth daily as needed 2 Active topiramate (TOPAMAX) 25 mg tablet TAKE 1 TABLET BY MOUTH TWICE A DAY 180 tablet 1 4 Active Active Problems Problem Noted Date Diagnosed Date Multiple thyroid nodules 04/21/2023 Neck mass 04/21/2023 Assessment & Plan (04/21/2023 3:15 PM P[employer] OPERATOR): Neck US reviewed here Upon review of additional images, previously noted left thyroid nodule now appears to be extrathyroidal in origin and likely correspond with what appears to be a lipoma seen on CT cervical spine 08/04/2017. This likely explains the previous nondiagnostic FNA specimens. Recommend further evaluation with dedicated CT soft tissue neck with contrast to confirm the suspected lipoma seen on the prior cervical spine CT series 4 image 59, and series [address] neck 02/2023: Lipoma versus prominent fat lobule anterior to the left internal jugular vein without concerning features. Discussed above images and probably no need for follow up images unless she has neck obstructive symptoms Abnormal thyroid blood test 04/21/2023 Assessment & Plan (04/21/2023 3:17 PM POWER GENERATION [employer] OPERATOR): Unknown when she started MMI One TSH value subnormal in 2020 Advised lowering MMI to 5 mg every other day given low FT4 and FT3 TFT recheck in 2 months Consider holding MMI and rechecking TFT in 3 months Chronic pain of right knee 03/30/2019 Encounters Date Type Department Care Team Description 06/29/2024 Telephone [facility]ology Head-Neck Division [address] [place] [phone] Valencia Clark RN Treatment Plan Update 06/09/2024 2:19 PM [employer] OPER[employer] - 06/09/2024 11:59 PM [employer] OPERATOR Hospital Encounter [facility] [address] [place] [id number] Thyroid nodule Discharge Disposition: Discharge to home or self care 06/08/2024 Telephone [facility] [address] [place] [address] Savanna Valdivia RN 06/07/2024 4:20 PM [employer] OPER[employer] Office Visit [facility] of [facility]ol[facility]ology Head-Neck Division [address] [place] [phone] Wesly Ferguson MD Thyroid nodule (Primary Dx) 06/07/2024 2:11 PM [employer] OPERATOR - 06/07/2024 11:59 PM [employer] OPERATOR Hospital Encounter [facility] [address] [place] [address] Thyroid nodule Discharge Disposition: Discharge to home or self care from Last 3 Months Immunizations Immunization Administration Dates Next Due Pfizer SARS-CoV-2 Monovalent Vaccination (12+ Yrs) PURPLE 03/05/2021,07/20/2020,06/29/2020 Surgical History Surgery Date Site/Laterality Comments WRIST FRACTURE SURGERY Left HYSTERECTOMY 04/14/1986 - 04/13/1987 BREAST RECONSTRUCTION 04/14/1994 - 04/13/1995 COLONOSCOPY W/ POLYPECTOMY x 5 WISDOM TOOTH EXTRACTION UPPER GASTROINTESTINAL ENDOSCOPY Medical History Medical History Date Comments Cancer (HCC) 1994 Breast Hypercholesteremia Hypertension Osteoarthritis Dental disease Allergies Arthritis Migraine Osteoporosis Dizziness Depression Colon polyp Family History Medical History Relation Name Comments Hypertension Brother Arthritis Mother Cancer Mother Deep vein thrombosis Mother Heart disease Mother Hyperlipidemia Mother Hypertension Mother Cancer Sister Hypertension Sister Thyroid disease Sister Relation Name Status Comments Brother Mother Sister Social History Tobacco Use Types Packs/Day Years Used Date Smoking Tobacco: Never Passive Smoke Exposure: Never Smokeless Tobacco: Never Tobacco Cessation:Counseling Given: Not Answered Alcohol Use Standard Drinks/Week Comments Not Currently 0 (1 standard drink = 0.6 oz pur e alcohol) AUDIT-C Answer Date Recorded Q1: How often do you have a drink containing alcohol? Never 09/19/2023 Q2: How many drinks containi ng alcohol do you have on a typical day when you are drinking? Patient does not drink Q3: How often do you have si x or more drinks on one occasion? Never 09/19/2023 Personal Safety Answer Date Recorded Have you ever been in or are you currently in a harmful physical or emotional relationship or is someone making you feel afraid or unsafe? Denies 09/19/2023 Comments Unknown Sex and Gender Information Value Date Recorded Sex Assigned at Not on file Legal Sex Female 8:45 PM P[employer] OPERATOR Gender Identity Not on file Sexual Orientation Not on file Occupation Industry Job Start Date Job End Date Retired Not on file Not on file Not on file Obstetrics History Last Filed Vital Signs Vital Sign Reading Time Taken Comments Blood Pressure 146/94 09/19/2023 2:29 PM CDT Pulse 78 09/19/2023 2:29 PM CDT Temperature 36.1 C (97 F) 09/19/2023 2:12 PM CDT Respiratory Rate 19 09/19/2023 2:29 PM CDT Oxygen Saturation 100% 09/19/2023 2:29 PM CDT Inhaled Oxygen Concentration - - Weight 59.5 kg (131 lb 3.2 oz) 06/07/2024 4:16 P M [employer] OPERATOR Height 160 cm (5' 3 ) 09/19/2023 12:59 PM CDT Body Mass Index 23.24 09/19/2023 12:59 PM CDT Plan of Treatment Health Maintenance Due Date Last Done Comments Breast Cancer Screening-Mammogram 1950 Depression Screening 1950 Fall Risk Assessment 1950 Hepatitis C Screening 1950 Hepatitis B Screening 12/28/1969 Well Visit 65+ 12/28/2016 Pneumococcal vaccine 65+ (2 of 2 - PPSV23) 01/22/2020 01/21/2019, 06/19/2017 Zoster Vaccine (2 of 2) 01/01/2021 11/06/2020 Covid-19 Vaccine (4 - 2023-2 5 season) 2023 03/05/2021, 07/20/2020, 06/29/2020 Influenza Vaccine (Season Ended) 2024 02/05/2019, 01/21/2019, 01/21/2019, Additional history exists DTaP/Tdap/Td Vaccine (3 - Td or Tdap) 10/09/2025 10/10/2015, 10/10/2015 Osteoporosis Screening-Bone Density Scan 11/04/2025 11/05/2023, 11/02/2021 Colon Cancer Screening-Colonoscopy 09/18/2033 09/19/2023 Colon Cancer Screening-CT Colonography Discontinued 09/19/2023 Colon Cancer Screening-DNA Stool Discontinued 09/19/19 Colon Cancer Screening-FIT Discontinued 09/19/2023 Colon Cancer Screening-Sigmoidoscopy Discontinued 09/19/2023 Procedures Procedure Name Priority Date/Time Associated Diagnosis Comments US GUIDED THYROID FINE NEEDLE ASPIRATION 1ST LESION Schedule Routine, Read Routine (OP Routine) 06/09/2024 3:37 PM [employer] OPERATOR Thyroid nodule CYTOLOGY Routine 06/09/2024 3:09 PM P[employer] OPERATOR Thyroid nodule US THYROID Schedule Routine, Read Routine (OP Routine) 06/07/2024 3:06 PM P[employer] OPERATOR Thyroid nodule COLONOSCOPY 09/19/2023 1:25 PM CDT from Last 3 Months or Most Recently Relevant to Health Maintenance Results * US Guided Thyroid Fine Needle Aspiration 1st Lesion (06/09/2024 3:37 PM P[employer] OPERATOR) Anatomical Region Laterality Modality Thyroid N/A Ultrasound 06/09/2024 3:42 PM POWER [employer] OPERATOR Impressions 06/09/2024 3:42 PM POWER [employer] OPERATOR 1. Successful thyroid biopsy of the indeterminate right thyroid nodule. Electronically signed by: Nury Martinez PA-C Narrative 06/09/2024 3:42 PM POWER [employer]ATION [employer] OPERATOR EXAMINATION: ULTRASOUND-GUIDED THYROID FINE NEEDLE ASPIRATION HISTORY: 73-year-old female with breast cancer and right thyroid nodule here for fine-needle aspiration. COMPARISON: Thyroid sonogram May 2024 FINDINGS: Biopsy #: 1 Nodule reference number based on prior diagnostic ultrasound: 1 Size: 2.0 cm craniocaudal x 2.0 cm transverse x 2.1 cm AP Maximum Size: 2.1 cm Location: Right mid ACR TI-RADS risk category: 3 Reason for biopsy: meets ACR TI-RADS criteria FINE NEEDLE ASPIRATION: The procedure for ultrasound-guided FNA and its benefits and risks were explained to the patient. Risks were explained to include, but not be limited to, hemorrhage, infection, injury to adjacent organs, non-diagnostic specimen and adverse reaction to medications administered. The patient voiced understanding and wished to proceed and signed the consent form. A site was localized for fine needle aspiration. The site was prepped and draped in the usual manner. 2 mL of 1% Lidocaine was used for local anesthesia. 6 passes were made with 25 gauge needles into the lesion. Appropriate needle localization was documented with continuous sonographic guidance. The fine needle aspirates were handed to the courtesy van driver present during the procedure. Please refer to the dictated cytology report for final interpretation. The patient's skin was cleaned and dressed. The patient tolerated the procedure well without immediate complication. Nury Martinez PA-C, the Physician Bull Rider, was present from the beginning to the end of the procedure. Nury PEDRO performed the biopsy. Dr. Zana Nicholson (vice president marketing & development) was present and participated in the procedure. Procedure Note Nury Martinez PA - 06/09/2024 EXAMINATION: ULTRASOUND-GUIDED THYROID FINE NEEDLE ASPIRATION HISTORY: 73-year-old female with breast cancer and right thyroid nodule here for fine-needle aspiration. COMPARISON: Thyroid sonogram May 2024 FINDINGS: Biopsy #: 1 Nodule reference number based on prior diagnostic ultrasound: 1 Size: 2.0 cm craniocaudal x 2.0 cm transverse x 2.1 cm AP Maximum Size: 2.1 cm Location: Right mid ACR TI-RADS risk category: 3 Reason for biopsy: meets ACR TI-RADS criteria FINE NEEDLE ASPIRATION: The procedure for ultrasound-guided FNA and its benefits and risks were explained to the patient. Risks were explained to include, but not be limited to, hemorrhage, infection, injury to adjacent organs, non-diagnostic specimen and adverse reaction to medications administered. The patient voiced understanding and wished to proceed and signed the consent form. A site was localized for fine needle aspiration. The site was prepped and draped in the usual manner. 2 mL of 1% Lidocaine was used for local anesthesia. 6 passes were made with 25 gauge needles into the lesion. Appropriate needle localization was documented with continuous sonographic guidance. The fine needle aspirates were handed to the courtesy van driver present during the procedure. Please refer to the dictated cytology report for final interpretation. The patient's skin was cleaned and dressed. The patient tolerated the procedure well without immediate complication. Nury Martinez PA-C, the Physician Bull Rider, was present from the beginning to the end of the procedure. Nury PEDRO performed the biopsy. Dr. Zana Nicholson (vice president marketing & development) was present and participated in the procedure. IMPRESSION: 1. Successful thyroid biopsy of the indeterminate right thyroid nodule. Electronically signed by: Nury Martinez PA-C Wesly Ferguosn MD [facility] US PROCEDURES Kasey l Result * Cytology (06/09/2024 3:09 PM POWER [employer] OPERATOR) Fluid (Thyroid Gland (Cytology)) 06/09/2024 3:10 PM POWER [employer] OPERATOR Narrative PATHOLOGY [facility] - 06/10/2024 9:54 PM P[employer]ATION [employer] OPERATOR EPIC results best viewed via link to PDF [facility] of Surgical [place] [address] [place] [address] Note to Patients: This report may contain a detailed description of human tissue sent by a health care provider to the laboratory for pathologic evaluation. The content of this report is essential for diagnosis and may provide important critical findings. This information may be unfamiliar to patients to review without a medical professional present. It is advised that the patient review this report in the presence of a health care provider who can answer questions and explain the details. CYTOPATHOLOGY REPORT FINAL WITH ADDENDUM Patient Name: REJI AGUIRRE Gender: F : 1950 (Age: 73) Address: [address] [place], [place] [phone] Hospital #: [id number] Taken:06/09/2024 Received:06/09/2024 Reported: 06/10/2024 Patient Type: [facility] Ancillary Service: UNKNOWN Location: Physician(s): WILLIS Degroot M.D., PH.D. FINAL DIAGNOSIS A. Thyroid, right lobe, ultrasound-guided fine needle aspiration: - Atypia of undetermined significance - See comment Comments The aspirate smears and ThinPrep slide are cellular and consist of almost exclusively oncocytic cells. No definitive colloid or high grade nuclear features are seen. The findings are best characterized as atypia of undetermined significance, oncocytic type. Please note that material for ThyroSeq was collected but not requested for reflex testing. [facility]06/10/2024 13:04 By this signature, I attest that the above diagnosis is based upon my personal examination of the slides(and/or other material indicated in the diagnosis). Kim Porter M.D. Report Electronically Reviewed and Signed Out By Kim Porter M.D. 06/10/2024 21:54:22 Brittni Choudhary MS, [facility] Gross Description A. Thyroid, right lobe, ultrasound guided, fine needle aspiration: 2 Pap stained smear(s) and 2 Diff-Quik stained smear(s). 1 ThinPrep prepared from needle rinse tube. Aspirated by clinician. (ML) Material for Thyroseq was collected but not requested as reflex testing. Contact pathology at for additional testing. Clinical Diagnosis and History The patient is a 73-year-old woman with a right thyroid nodule. Addenda/Procedures Addendum Ordered:06/24/2024Status:Signed OutAddendum Complete:06/24/2024y:Kim Porter M.D.Addendum Signed Out:06/25/2024 Addendum Comment A digital scan of the original reference lab report will begin on page two of this addendum. By this signature, I attest that the above diagnosis is based upon my personal examination of the slides(and/or other material indicated in the diagnosis). Kim Porter M.D.Report Electronically Reviewed and Signed Out By Kim Porter M.D. 06/25/2024 16:29:59 REPORT IMAGES AND SCANNED DOCUMENTS, IF INCLUDED, ONLY VIEWABLE IN PDF VERSION OF REPORT The performance characteristics of some immunohistochemical stains, in-situ hybridization and fluorescence in-situ hybridization tests and immunophenotyping by flow cytometry cited in this report (if any) were determined by the Surgical Pathology and Flow Cytometry Departments at [facility] as part of an ongoing quality audit representative program and in compliance with federally mandated regulations drawn from the Clinical Laboratory Improvement Act of 1988 (CLIA '88). Some of these tests rely on the use of analyte specific reagents and are subject to specific labeling requirements by the US Food and Drug Administration. Such diagnostic tests may only be performed in a facility that is certified by the Department of Health and Human Services as a high complexity laboratory under CLIA '88. The FDA has determined that such clearance or approval is not necessary. This test is used for clinical purposes. It should not be regarded as investigational or for research. Nevertheless, federal rules concerning the medical use of analyte specific reagents require that the following disclaimer be attached to the report: This test was developed and its performance characteristics determined by the Surgical Pathology and Flow Cytometry Departments of [facility]. It has not been cleared or approved by the U. S. Food and Drug Administration. Wesly Ferguson MD LAB CYTOLOGY ORDERABLE S Final Result PATHOLOGY [facility] [address] Floor [place], [place] [phone] * US Thyroid (06/07/2024 3:06 PM POWER [employer] OPERATOR) Anatomical Region Laterality Modality Head and Neck N/A Ultrasound 06/07/2024 4:07 PM P[employer] OPERATOR Impressions 06/07/2024 4:07 PM P[employer] OPERATOR 1. Recommendations regarding management of described nodules are included above. ACR TI-RADS recommendations FNA should only be recommended on a maximum of 2 nodules. A recommendation for follow-up should only be provided for a maximum of 4 nodules. TR5 (>=7 points) (risk of malignancy > 20%) >=1 cm: FNA 0.5-0.9 cm: follow-up US every year for 5 years <0.5 cm: no further evaluation TR4 (4-6 points) (risk of malignancy 5-20%) >=1.5 cm: FNA 1-1.4 cm: follow-up US in 1, 2, 3, and 5 years <1.0 cm: no further evaluation TR3 (3 points) (risk of malignancy 2-5%) >=2.5 cm: FNA 1.5-2.4 cm: follow-up US in 1, 3, and 5 years <1.5 cm: no further evaluation TR2 (2 points) and TR1 (0 points) (risk of malignancy < 2%) No FNA or follow-up US Electronically signed by: Hunter Joseph M.D. Narrative 06/07/2024 4:07 PM POWER [employer]ATION [employer] OPERATOR EXAMINATION: THYROID SONOGRAM HISTORY: Thyroid nodules Prior Biopsy: Outside fine-needle aspiration 11/15/2022, reportedly nondiagnostic Patient Risk Factors: None Prior Ultrasound: Ultrasound 02/11/2023 and outside ultrasound 10/08/2022 FINDINGS: The thyroid is normal in size. The thyroid gland appears diffusely hyperemic. Size right lobe: 4.5 cm craniocaudal, 2.4 cm transverse, 2.1 cm AP. Size left lobe: 3.9 cm craniocaudal, 1.4 cm transverse, 1.4 cm AP. Size isthmus: 0.2 cm AP. Estimated total number of nodules >/= 1 cm: 3 Number of spongiform nodules >/= 2 cm not described below (TR1): 0 Number of mixed cystic and solid nodules >/= 1.5 cm not described below (TR2): 0 Nodule 1: (As noted, this nodule was measured twice and the 2nd measurements were used) Location: Right mid . Size: 2.3 cm craniocaudal x 2.0 cm transverse x 1.9 cm AP (previously 1.8 cm craniocaudal x 1.6 cm transverse x 1.5 cm AP) Maximum Size: 2.3 cm Composition: Solid/almost completely solid (2) Echogenicity: Isoechoic (1) Shape: Not taller than wide (0) Margins: Smooth (0) Echogenic foci: None (0) Additional Echogenic foci 1: None (0) Additional Echogenic foci 2: None (0) ACR TI-RADS total points: 3 ACR TI-RADS risk category: TR3 (3 points) Follow-up details: Prior biopsy: No Significant change in size (>/= 20% in two dimensions and minimal increase of 2 mm): Yes. 102% increase in size Change in features: No Change in ACR TI-RADS risk category: No ACR TI-RADS recommendation: This does not meet criteria for fine-needle aspiration, however given significant interval increase in size, fine-needle aspiration can be considered. Nodule 2: Location: Right mid . Size: 1.2 cm craniocaudal x 1.3 cm transverse x 1.1 cm AP (previously 1.7 cm craniocaudal x 1.3 cm transverse x 1.0 cm AP) Maximum Size: 1.3 cm Composition: Solid/almost completely solid (2) Echogenicity: Hypoechoic (2) Shape: Not taller than wide (0) Margins: Smooth (0) Echogenic foci: None (0) Additional Echogenic foci 1: None (0) Additional Echogenic foci 2: None (0) ACR TI-RADS total points: 4 ACR TI-RADS risk category: TR4 (4-6 points) Follow-up details: Prior biopsy: No Significant change in size (>/= 20% in two dimensions and minimal increase of 2 mm): No Change in features: Yes, this now appears hypoechoic Change in ACR TI-RADS risk category: Yes, now TR 4 ACR TI-RADS recommendation: Follow-up US in 1 year Nodule 3: Location: Left mid . Size: 0.9 cm craniocaudal x 0.7 cm transverse x 0.5 cm AP (previously 0.9 cm craniocaudal x 0.8 cm transverse x 0.5 cm AP) Maximum Size: 0.9 cm Composition: Mixed cystic and solid (1) Echogenicity: Isoechoic (1) Shape: Not taller than wide (0) Margins: Smooth (0) Echogenic foci: Punctate echogenic foci (3) Additional Echogenic foci 1: None (0) Additional Echogenic foci 2: None (0) ACR TI-RADS total points: 5 ACR TI-RADS risk category: TR4 (4-6 points) Follow-up details: Prior biopsy: No Significant change in size (>/= 20% in two dimensions and minimal increase of 2 mm): No Change in features: No Change in ACR TI-RADS risk category: No ACR TI-RADS recommendation: Follow-up US in 1 year Nodule 4: Location: Left lower . Size: 1.0 cm craniocaudal x 1.1 cm transverse x 0.8 cm AP (previously 1.5 cm craniocaudal x 1.3 cm transverse x 1.4 cm AP) Maximum Size: 1.1 cm Composition: Solid/almost completely solid (2) Echogenicity: Isoechoic (1) Shape: Not taller than wide (0) Margins: Smooth (0) Echogenic foci: None (0) Additional Echogenic foci 1: None (0) Additional Echogenic foci 2: None (0) ACR TI-RADS total points: 3 ACR TI-RADS risk category: TR3 (3 points) Follow-up details: Prior biopsy: No Significant change in size (>/= 20% in two dimensions and minimal increase of 2 mm): No Change in features: No Change in ACR TI-RADS risk category: No ACR TI-RADS recommendation: No further follow-up Additional scattered nodules which do not meet criteria for follow-up for fine-needle aspiration. Isoechoic nodule inferior and lateral to the left hemithyroid is again noted, compatible with lipoma versus prominent fat lobule as noted on prior CT. Procedure Note Hunter Joseph MD - 06/07/2024 EXAMINATION: THYROID SONOGRAM HISTORY: Thyroid nodules Prior Biopsy: Outside fine-needle aspiration 11/15/2022, reportedly nondiagnostic Patient Risk Factors: None Prior Ultrasound: Ultrasound 02/11/2023 and outside ultrasound 10/08/2022 FINDINGS: The thyroid is normal in size. The thyroid gland appears diffusely hyperemic. Size right lobe: 4.5 cm craniocaudal, 2.4 cm transverse, 2.1 cm AP. Size left lobe: 3.9 cm craniocaudal, 1.4 cm transverse, 1.4 cm AP. Size isthmus: 0.2 cm AP. Estimated total number of nodules >/= 1 cm: 3 Number of spongiform nodules >/= 2 cm not described below (TR1): 0 Number of mixed cystic and solid nodules >/= 1.5 cm not described below (TR2): 0 Nodule 1: (As noted, this nodule was measured twice and the 2nd measurements were used) Location: Right mid . Size: 2.3 cm craniocaudal x 2.0 cm transverse x 1.9 cm AP (previously 1.8 cm craniocaudal x 1.6 cm transverse x 1.5 cm AP) Maximum Size: 2.3 cm Composition: Solid/almost completely solid (2) Echogenicity: Isoechoic (1) Shape: Not taller than wide (0) Margins: Smooth (0) Echogenic foci: None (0) Additional Echogenic foci 1: None (0) Additional Echogenic foci 2: None (0) ACR TI-RADS total points: 3 ACR TI-RADS risk category: TR3 (3 points) Follow-up details: Prior biopsy: No Significant change in size (>/= 20% in two dimensions and minimal increase of 2 mm): Yes. 102% increase in size Change in features: No Change in ACR TI-RADS risk category: No ACR TI-RADS recommendation: This does not meet criteria for fine-needle aspiration, however given significant interval increase in size, fine-needle aspiration can be considered. Nodule 2: Location: Right mid . Size: 1.2 cm craniocaudal x 1.3 cm transverse x 1.1 cm AP (previously 1.7 cm craniocaudal x 1.3 cm transverse x 1.0 cm AP) Maximum Size: 1.3 cm Composition: Solid/almost completely solid (2) Echogenicity: Hypoechoic (2) Shape: Not taller than wide (0) Margins: Smooth (0) Echogenic foci: None (0) Additional Echogenic foci 1: None (0) Additional Echogenic foci 2: None (0) ACR TI-RADS total points: 4 ACR TI-RADS risk category: TR4 (4-6 points) Follow-up details: Prior biopsy: No Significant change in size (>/= 20% in two dimensions and minimal increase of 2 mm): No Change in features: Yes, this now appears hypoechoic Change in ACR TI-RADS risk category: Yes, now TR 4 ACR TI-RADS recommendation: Follow-up US in 1 year Nodule 3: Location: Left mid . Size: 0.9 cm craniocaudal x 0.7 cm transverse x 0.5 cm AP (previously 0.9 cm craniocaudal x 0.8 cm transverse x 0.5 cm AP) Maximum Size: 0.9 cm Composition: Mixed cystic and solid (1) Echogenicity: Isoechoic (1) Shape: Not taller than wide (0) Margins: Smooth (0) Echogenic foci: Punctate echogenic foci (3) Additional Echogenic foci 1: None (0) Additional Echogenic foci 2: None (0) ACR TI-RADS total points: 5 ACR TI-RADS risk category: TR4 (4-6 points) Follow-up details: Prior biopsy: No Significant change in size (>/= 20% in two dimensions and minimal increase of 2 mm): No Change in features: No Change in ACR TI-RADS risk category: No ACR TI-RADS recommendation: Follow-up US in 1 year Nodule 4: Location: Left lower . Size: 1.0 cm craniocaudal x 1.1 cm transverse x 0.8 cm AP (previously 1.5 cm craniocaudal x 1.3 cm transverse x 1.4 cm AP) Maximum Size: 1.1 cm Composition: Solid/almost completely solid (2) Echogenicity: Isoechoic (1) Shape: Not taller than wide (0) Margins: Smooth (0) Echogenic foci: None (0) Additional Echogenic foci 1: None (0) Additional Echogenic foci 2: None (0) ACR TI-RADS total points: 3 ACR TI-RADS risk category: TR3 (3 points) Follow-up details: Prior biopsy: No Significant change in size (>/= 20% in two dimensions and minimal increase of 2 mm): No Change in features: No Change in ACR TI-RADS risk category: No ACR TI-RADS recommendation: No further follow-up Additional scattered nodules which do not meet criteria for follow-up for fine-needle aspiration. Isoechoic nodule inferior and lateral to the left hemithyroid is again noted, compatible with lipoma versus prominent fat lobule as noted on prior CT. IMPRESSION: 1. Recommendations regarding management of described nodules are included above. ACR TI-RADS recommendations FNA should only be recommended on a maximum of 2 nodules. A recommendation for follow-up should only be provided for a maximum of 4 nodules. TR5 (>=7 points) (risk of malignancy > 20%) >=1 cm: FNA 0.5-0.9 cm: follow-up US every year for 5 years <0.5 cm: no further evaluation TR4 (4-6 points) (risk of malignancy 5-20%) >=1.5 cm: FNA 1-1.4 cm: follow-up US in 1, 2, 3, and 5 years <1.0 cm: no further evaluation TR3 (3 points) (risk of malignancy 2-5%) >=2.5 cm: FNA 1.5-2.4 cm: follow-up US in 1, 3, and 5 years <1.5 cm: no further evaluation TR2 (2 points) and TR1 (0 points) (risk of malignancy < 2%) No FNA or follow-up US Electronically signed by: Hunter Joseph M.D. us Wesly Jassi Ferguson MD IM US PROCEDURES Kasey l Result * Colonoscopy (09/19/2023 1:25 PM CDT) Anatomical Region Laterality Modality Other Narrative Procedure Note Mervat Vee MD - 09/19/2023 1:25 PM CDT [facility] GI ENDOSCOPY Patient Name: Reji Aguirre Procedure Date: 09/19/2023 1:25 PM Date of : 1950 Admit Type: Outpatient Age: 72 Gender: Female Attending MD: Mervat Vee M.D. Room: [facility] ENDOSCOPY ROOM 06 Note Status: Finalized Procedure: Colonoscopy Indications: High risk colon cancer surveillance: Personalhistory of colonic polyps Referring MD: Providers: Mervat Vee M.D. Medicines: See the Anesthesia note for documentation of the administered medications Complications: No immediate complications. Estimated Blood Loss: Estimated blood loss: none. Procedure: Pre-Anesthesia Assessment: - Prior to the procedure, a History and Physicalwas performed, and patient medications, allergies and sensitivities were reviewed. The patient'stolerance of previous anesthesia was reviewed. - The risks and benefits of the procedure and the sedation options and risks were discussed with the patient. All questions were answered and informed consent was obtained. The benefits, risks and alternatives of theprocedure and sedation were discussed and informed consentwas obtained. All questions were answered. Please referto the signed informed consent document in the medical record. The scope was passed under direct vision.The PCF-[id number] colonoscope was introduced through theanus and advanced to the cecum, identified byappendiceal orifice and ileocecal valve. The colonoscopy was performed without difficulty. The patient tolerated the procedure well. The quality of the bowel preparation was good. The ileocecal valve,appendiceal orifice, and rectum were photographed. Prep was administered in a single dose. Findings: The perianal and digital rectal examinations were normal. Pertinent negatives include normal sphincter tone. A 4 mm polyp was found in the transverse colon. The polyp wassessile. The polyp was removed with a jumbo cold forceps. Resection andretrieval were complete. Many small-mouthed diverticula were found in the left colon. The retroflexed view of the distal rectum and anal verge was normaland showed no anal or rectal abnormalities. Impression: - One 4 mm polyp in the transverse colon, removedwith a jumbo cold forceps. Resected and retrieved. - Diverticulosis in the left colon. - The distal rectum and anal verge are normal on retroflexion view. Recommendation: - Resume previous diet. - Continue present medications. - Await pathology results. Mervat Vee M.D. Mervat Vee M.D. 09/19/2023 2:16:32 PM . Number of Addenda: 0 Note Initiated On: 09/19/2023 1:25 PM Recognized by the [employer] for promoting quality in endoscopy Mervat Vee MD ENDOSCOPY PROCEDURES Kasey l Result from Last 3 Months or Most Recently Relevant to Health Maintenance Insurance AETNA MEDICARE GOLD AETNA MEDICARE GOLD AETNA MEDICARE GOLD [facility] REF Care Teams Property And Casualty Insurance Agent Relationship Specialty Start Date End Date Jonna Mathew MD [address] [address] PCP - General Internet Designer 04/15/24 Santana Pal MD [address] [address] Family Medicine 04/15/24
--- OUTSIDE RECORDS SUMMARY | 2024-08-26 21:48 | XMS_ITS | Encounter Summary ---
Author Organization [facility] Facility Care Team Providers Care Railroad Car Loader Name Role Phone Santana Pal MD Primary Care Provider [phone] Santana Pal MD Primary Care Provider [phone] Jonna Mathew MD Primary Care Pro vider Santana Pal MD Unavailable [phone] Encounter Details Date Type Department Care Team (Latest Contact Info) Description 02/05/2017 Orders Only [facility] CLINCONV ProviderJohn MD [address] [place] [id number] Social History Tobacco Use Types Packs/Day Years Used Date Smoking Tobacco: Never Assessed Comments Unknown Sex and Gender Information Value Date Recorded Sex Assigned at Not on file 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 Historical Provider Final Res ult documented in this encounter Visit Diagnoses Not on filedocumented in this encounter Care Teams Railroad Car Loader Relationship Specialty Start Date End Date Santana Pal MD [facility] [id number] PCP - General Family Medicine 02/12/19 02/26/24 Santana Pal MD [address] [id number] PCP - General Family Medicine 02/27/24 04/14/24 Jonna Mathew MD [address] [id number] PCP - General Stone Trimmer 04/15/24 Santana Pal MD [address] [id number] Family Medicine 04/15/24 documented as of this encounter
--- OUTSIDE RECORDS SUMMARY | 2024-08-26 21:48 | XMS_ITS | Referral Summary ---
Author Organization [facility] Address [address] [place] [address] Care Team Providers Care Funder Name Role Phone Jonna Mathew MD Primary Care Pro vider Santana Pal MD Unavailable [phone] Encounters Date Type Department Care Team Description 06/29/2024 Telephone [facility] Department of Otolaryngology Head-Neck Division [address] [place] [phone] Valencia Clark, DALE Treatment Plan Update 06/09/2024 2:19 PM [employer] - 06/09/2024 11:59 PM [employer] Hospital Encounter [facility] Radiology [facility] [address] [place] [phone] Thyroid nodule Discharge Disposition: Discharge to home or self care 06/08/2024 Telephone [facility] Radiology [address] [place] [address] Savanna Valdivia RN 06/07/2024 2:11 PM [employer] - 06/07/2024 11:59 PM [employer] Hospital Encounter [facility] Radiology [address] [place] [address] Thyroid nodule Discharge Disposition: Discharge to home or self care 06/07/2024 4:20 PM [employer] Office Visit [facility] Department of Otolaryngology Head-Neck Division [address] [facility] Floor [address] [place] [address] Wesly Ferguson MD Thyroid nodule (Primary Dx) from Last 3 Months Allergies Active Allergy Reactions Criticality Noted Date [...] 04/21/2023 Assessment & Plan (04/21/2023 3:15 PM [employer]): Neck US reviewed here Upon review of [...] 04/21/2023 Assessment & Plan (04/21/2023 3:17 PM [employer]): Unknown when she started MMI One TSH value subnormal in 2020 Advised lowering MMI to 5 mg every other day given low FT4 and FT3 TFT recheck in 2 months Consider holding MMI and rechecking TFT in 3 months Chronic pain of right knee 03/30/2019 Immunizations Immunization Administration Dates Next Due Pfizer SARS-CoV-2 Monovalent Vaccination (12+ Yrs) PURPLE 03/05/2021,07/20/2020,06/29/2020 Social History Tobacco Use Types Packs/Day [...] on file Legal Sex Female 8:45 PM [employer] Gender Identity Not on file Sexual Orientation Not on file Occupation Industry Job Start Date Job End Date Retired Not on file Not on file Not on file Last Filed Vital Signs [...] lb 3.2 oz) 06/07/2024 4:16 P M [employer] Height 160 cm (5' 3 ) 09/19/2023 12:59 PM CDT Body Mass Index 23.24 09/19/2023 12:59 PM CDT Plan of Treatment Not on file Procedures Procedure Name Priority Date/Time Associated Diagnosis Comments US GUIDED THYROID FINE NEEDLE ASPIRATION 1ST LESION Schedule Routine, Read Routine (OP Routine) 06/09/2024 3:37 PM [employer] Thyroid nodule CYTOLOGY Routine 06/09/2024 3:09 PM [employer] Thyroid nodule US THYROID Schedule Routine, Read Routine (OP Routine) 06/07/2024 3:06 PM [employer] Thyroid nodule COLONOSCOPY 09/19/2023 1:25 PM CDT from Last 3 Months or Most Recently Relevant to Health Maintenance Results * US Guided Thyroid Fine Needle Aspiration 1st Lesion (06/09/2024 3:37 PM [employer]) Anatomical Region Laterality Modality Thyroid N/A Ultrasound 06/09/2024 3:42 PM [employer] Impressions 06/09/2024 3:42 PM [employer] 1. Successful thyroid biopsy of the indeterminate right thyroid nodule. Electronically signed by: Nury Martinez PA-C Narrative 06/09/2024 3:42 PM [employer] EXAMINATION: ULTRASOUND-GUIDED THYROID FINE NEEDLE ASPIRATION HISTORY: [...] fine needle aspirates were handed to the silica filter operator present during the procedure. Please refer to the dictated cytology report for final interpretation. The patient's skin was cleaned and dressed. The patient tolerated the procedure well without immediate complication. Nury Martinez PA-C, the Physician Log Buncher, was present from the beginning to the end of the procedure. Nury PEDRO performed the biopsy. Dr. Zana Nicholson (residential supervisor) was present and participated in the procedure. [...] fine needle aspirates were handed to the silica filter operator present during the procedure. Please refer to the dictated cytology report for final interpretation. The patient's skin was cleaned and dressed. The patient tolerated the procedure well without immediate complication. Nury Martinez PA-C, the Physician Log Buncher, was present from the beginning to the end of the procedure. Nury PEDRO performed the biopsy. Dr. Zana Nicholson (residential supervisor) was present and participated in the procedure. IMPRESSION: 1. Successful thyroid biopsy of the indeterminate right thyroid nodule. Electronically signed by: Nury Martinez PA-C Wesly Ferguosn MD [facility] US PROCEDURES Kasey l Result * Cytology (06/09/2024 3:09 PM [employer]) Fluid (Thyroid Gland (Cytology)) 06/09/2024 3:10 PM [employer] Narrative PATHOLOGY [facility] - 06/10/2024 9:54 PM [employer] EPIC results best viewed via link to PDF [facility] [place] [address] Note to Patients: This report may contain [...] Gender: F : 1950 (Age: 73) Address: [address] [place] [address] [facility] #: [id number] Taken:06/09/2024 Received:06/09/2024 Reported: 06/10/2024 Patient Type: [facility] Ancillary Service: UNKNOWN Location: Physician(s): WILLIS Degroot [...] collected but not requested for reflex testing. pamo/06/10/2024 13:04 By this signature, I attest that the above diagnosis is based upon my personal examination of the slides(and/or other material indicated in the diagnosis). Kim Porter M.D. Report Electronically Reviewed and Signed Out By Kim Porter M.D. 06/10/2024 21:54:22 Brittni Choudhary MS, CT (ASCP) Gross Description A. Thyroid, right lobe, ultrasound [...] Surgical Pathology and Flow Cytometry Departments at [facility] as part of an ongoing clinical quality manager program and in compliance with federally mandated [...] Surgical Pathology and Flow Cytometry Departments of [facility]. It has not been cleared or approved by the U. S. Food and Drug Administration. us Wesly Ferguson MD LAB CYTOLOGY ORDERABLE S Final Result PATHOLOGY [facility] 3rd Floor [place], [place] [phone] * US Thyroid (06/07/2024 3:06 PM [employer]) Anatomical Region Laterality Modality Head and Neck N/A Ultrasound 06/07/2024 4:07 PM [employer] Impressions 06/07/2024 4:07 PM [employer] 1. Recommendations regarding management of described nodules [...] Hunter Joseph M.D. Narrative 06/07/2024 4:07 PM [employer] EXAMINATION: THYROID SONOGRAM HISTORY: Thyroid nodules Prior [...] signed by: Hunter Joseph M.D. us Wesly Ferguson MD IMG US PROCEDURES Kasey l Result * Colonoscopy (09/19/2023 1:25 PM CDT) Anatomical Region Laterality Modality Other Narrative Procedure Note Mervat Vee MD - 09/19/2023 1:25 PM CDT [facility] GI ENDOSCOPY Patient Name: Reji Aguirre Procedure Date: 09/19/2023 1:25 PM Date of : 1950 Admit Type: Outpatient Age: 72 Gender: Female Attending MD: Mervat Vee M.D. Room: [facility] ENDOSCOPY ROOM 06 Note Status: Finalized Procedure: [...] The scope was passed under direct vision.The [id number]-[id number] colonoscope was introduced through theanus and advanced [...] On: 09/19/2023 1:25 PM Recognized by the [employer] for promoting quality in endoscopy Mervat Vee MD ENDOSCOPY PROCEDURES Kasey cage Result from Last 3 Months or Most Recently Relevant to Health Maintenance Insurance AETNA MEDICARE GOLD AETNA MEDICARE GOLD AETNA MEDICARE GOLD AETNA MCR ADV REF Care Teams Funder Relationship Specialty Start Date End Date Jonna Mathew MD [address] [address] PCP - General Car Dumper 04/15/24 Santana Pal MD [address] [address] Family Medicine 04/15/24
[2024-08-26 22:15] VITALS: BP 118/74; PULSE 72; RESP 19; O2SAT 96
== END 2024-08-26 22:20 | disposition home or self-care (01) ==
PROVIDERS: Emergency Provider Emergency Medicine
DX: F10.129 Alcohol abuse with intoxication, unspecified (principal); Y90.9 Presence of alcohol in blood, level not specified
CPT/HCPCS: 36415; 80053; 82077; 85025; 96361; 96374; 99284; J1630; J7120